=== PATIENT | female | born 1950 | race Caucasian/White ===

== ENCOUNTER → 2017-04-16 | Outpatient (CLI) | payer OTHER ==
[~2017-04-16] MED LIST: AMLO5TAB2 PO; ASPI-496 PO; ATOR80TA75 PO; CALC1CAP8 PO; CEPH-368 PO; CHOL500014 PO; CIME200T4 PO; CYPR4TAB PO; DIPH25CA61 PO; FERR325T63 PO; HYDR200T PO; MELO7.5T5 PO; METO25TA35 PO; METO50TA82 PO; MULT1TAB9 PO; OMEP-110 PO; ONDA4TAB7 PO; OXYC-229 PO; SERT50TA PO; SULF1TAB24 PO; ZOLP10TA PO; iron PO
== END | disposition home or self-care (01) ==
LOC: RAD 10:14
PROVIDERS: ATTEND Internal Medicine Hematology & Oncology
DX: R91.8 Other nonspecific abnormal finding of lung field (principal); C50.111 Malignant neoplasm of central portion of right female breast
CPT/HCPCS: 71020

== ENCOUNTER → 2017-04-23 | Outpatient (CLI) | payer OTHER ==
[~2017-04-23] MED LIST changes: +OMNIPAQUE 350 MG/ML, 100ML BOTTLE ONE
== END | disposition home or self-care (01) ==
LOC: CFH 10:24
PROVIDERS: ATTEND Internal Medicine Hematology & Oncology
DX: C50.111 Malignant neoplasm of central portion of right female breast (principal); C78.01 Secondary malignant neoplasm of right lung; I77.89 Other specified disorders of arteries and arterioles; R91.8 Other nonspecific abnormal finding of lung field; I70.0 Atherosclerosis of aorta; M41.84 Other forms of scoliosis, thoracic region; Z95.1 Presence of aortocoronary bypass graft; Z90.49 Acquired absence of other specified parts of digestive tract
CPT/HCPCS: 71275; Q9967

== ENCOUNTER 2018-06-04 06:55 | Day surgery (SDC) | payer OTHER ==
[~2018-06-04] VITALS: Ht 165.1 cm; Wt 75.0 kg
[~2018-06-04 06:55] MED LIST changes: +ASPI-515 PO; +ATOR-2 PO; -ATOR80TA75 PO; +BIOT1TAB3 PO; -CHOL500014 PO; +CHOL500045 PO; -CIME200T4 PO; +CIME200T6 PO; -CYPR4TAB PO; +CYPR4TAB36 PO; +DIPH1TAB6 PO; -HYDR200T PO; +HYDR200T72 PO; +LORA1TAB PO; -OMNIPAQUE 350 MG/ML, 100ML BOTTLE ONE; -OXYC-229 PO; +OXYC-307 PO
[2018-06-04 08:00] VITALS: BP 180/87
[2018-06-04] MEDS ORDERED: LIDOCAINE-MPF 2%, 2ML ONE (08:05)
[2018-06-04] MEDS ORDERED: NALOXONE 1 MG/ML, 2ML ONE (08:25)
[2018-06-04] MEDS ORDERED: MIDAZOLAM 1 MG/ML, 5ML ONE (08:25)
[2018-06-04] MEDS ORDERED: FENTANYL PF 100 MCG/2ML ONE (08:25)
[2018-06-04] MEDS ORDERED: FLUMAZENIL 0.1 MG/1 ML, 5ML ONE (08:25)
[2018-06-04] MEDS ORDERED: SODIUM CHLORIDE 0.9% 1,000 ML IV SCH (08:30)
== END 2018-06-04 17:00 | disposition home or self-care (01) ==
LOC: OUT 06:55 → OR 06:55 → EDSTATUS 08:30 → OR 17:00
PROVIDERS: ATTEND Radiology Radiation Oncology
DX: C78.01 Secondary malignant neoplasm of right lung (principal); I27.20 Pulmonary hypertension, unspecified; I51.7 Cardiomegaly; Z95.1 Presence of aortocoronary bypass graft; Z79.82 Long term (current) use of aspirin
CPT/HCPCS: 32553; 71045; 77014; 99156; A4648; J2250; J3010; J3490; 99157; J2310

== ENCOUNTER 2018-06-27 09:42 | Inpatient (IN) | payer OTHER ==
[~2018-06-27] VITALS: Ht 165.1 cm; Wt 80.5 kg
[~2018-06-27 09:42] MED LIST changes: -AMLO5TAB2 PO; +AMLO5TAB7 PO
[2018-06-27] MEDS ORDERED: SODIUM CHLORIDE 0.9% 1,000ML IVBOLUS ONE (10:00)
[2018-06-27] MEDS ORDERED: SODIUM CHLORIDE FLUSH 10ML SYR IVF ONE (10:00)
[2018-06-27 10:23] LABS: BASOPHILS % (AUTO) 0 % (0-1); EOSINOPHILS # (AUTO) 0.24 x10^3/uL (0-0.4); EOSINOPHILS % (AUTO) 6 % (1-7); LYMPHOCYTES # (AUTO) 0.44 x10^3/uL (1-3.4); LYMPHOCYTES % (AUTO) 11 % (22-44); MD NO; MEAN CORPUSCULAR HEMOGLOBIN 32.1 pg (27.0-34.8); MEAN CORPUSCULAR HGB CONC 33.8 g/dL (32.4-35.8); MEAN CORPUSCULAR VOLUME 94.8 fL (80-100); MEAN PLATELET VOLUME 8.4 fL (7.4-10.4); MONOCYTES # (AUTO) 0.41 x10^3/uL (0.2-0.8); MONOCYTES % (AUTO) 10 % (2-9); NEUTROPHILS # (AUTO) 3.04 x10^3/uL (1.8-6.8); NEUTROPHILS % (AUTO) 73 % (42-75); PLATELET COUNT 127 x10^3/uL (130-400); RED BLOOD COUNT 3.39 x10^6/uL (3.82-5.3); RED CELL DISTRIBUTION WIDTH 17.9 % (9.6-15.2)
[2018-06-27 10:33] LABS: ALANINE AMINOTRANSFERASE 32 U/L (12-78); ALBUMIN 2.4 g/dL (3.4-5.0); ANION GAP 10 mmol/L (5-15); CALCIUM 7.8 mg/dL (8.5-10.1); CHLORIDE 112 mmol/L (98-107); CREATININE 2.81 mg/dL (0.55-1.02)
[2018-06-27 10:35] LABS: ALKALINE PHOSPHATASE 226 U/L (45-117); BILIRUBIN,TOTAL 0.3 mg/dL (0.2-1.0); TOTAL PROTEIN 7.6 g/dL (6.4-8.2)
[2018-06-27 11:08] LABS: MICROSCOPIC AUTO
[2018-06-27 11:09] LABS: CULTURE INDICATED? YES
[2018-06-27] MEDS ORDERED: POLYETHYLENE GLYCOL 17 GM PACKET PO PRN (12:00)
[2018-06-27] MEDS ORDERED: hydrALAzine 20 MG/ML, 1ML IVPush PRN (12:00)
[2018-06-27] MEDS ORDERED: DOCUSATE 100 MG CAPSULE PO PRN (12:00)
[2018-06-27] MEDS ORDERED: ONDANSETRON ODT 4 MG PO PRN (12:00)
[2018-06-27] MEDS ORDERED: ONDANSETRON 2MG/ML, 2ML IVPush PRN (12:00)
[2018-06-27] MEDS ORDERED: morphine SULFATE 10 MG/ML, 1ML IVPush PRN (12:00)
[2018-06-27 12:07] LABS: HCT (SEDRATE) 32.1 % (34.6-47.8)
[2018-06-27 12:22] LABS: TROPONIN I 0.109 ng/mL (0.000-0.045)
[2018-06-27] MEDS ORDERED: SODIUM BICARB 8.4%,50ML SYR. 50 MEQ in D5%-0.45% NACL 1,000 ML IV SCH (12:47)
[2018-06-27 13:00] VITALS: BP 157/79
[2018-06-27] MEDS ORDERED: SODIUM BICARB 8.4%,50ML SYR. 50 MEQ in SODIUM CHLORIDE 0.45% 1,000 ML IV SCH (13:00)
[2018-06-27 13:22] VITALS: BP 157/79
[2018-06-27 19:07] VITALS: BP 173/78
[2018-06-27] MEDS: OMEPRAZOLE 20 MG CAPSULE.DR PO SCH (20:10)
[2018-06-27] MEDS: METOPROLOL TARTRATE 50 MG TABLET PO SCH (20:10)
[2018-06-27] MEDS: ZOLPIDEM 5MG TABLET PO PRN (20:10)
[2018-06-28 03:56] VITALS: BP 189/81
[2018-06-28 03:56] LABS: BASOPHILS # (AUTO) 0.01 x10^3/uL (0-0.1); BASOPHILS % (AUTO) 0 % (0-1); EOSINOPHILS # (AUTO) 0.17 x10^3/uL (0-0.4); EOSINOPHILS % (AUTO) 4 % (1-7); LYMPHOCYTES # (AUTO) 0.52 x10^3/uL (1-3.4); LYMPHOCYTES % (AUTO) 12 % (22-44); MD NO; MEAN CORPUSCULAR HEMOGLOBIN 31.5 pg (27.0-34.8); MEAN CORPUSCULAR HGB CONC 33.1 g/dL (32.4-35.8); MEAN CORPUSCULAR VOLUME 95.1 fL (80-100); MEAN PLATELET VOLUME 8.5 fL (7.4-10.4); MONOCYTES # (AUTO) 0.36 x10^3/uL (0.2-0.8); MONOCYTES % (AUTO) 9 % (2-9); NEUTROPHILS # (AUTO) 3.24 x10^3/uL (1.8-6.8); NEUTROPHILS % (AUTO) 75 % (42-75); PLATELET COUNT 109 x10^3/uL (130-400); RED BLOOD COUNT 3.11 x10^6/uL (3.82-5.3)
[2018-06-28 04:05] LABS: CALCIUM 7.3 mg/dL (8.5-10.1)
[2018-06-28 04:09] LABS: ALANINE AMINOTRANSFERASE 26 U/L (12-78); ALBUMIN 2.1 g/dL (3.4-5.0); ANION GAP 9 mmol/L (5-15); CALCIUM 7.1 mg/dL (8.5-10.1); CHLORIDE 113 mmol/L (98-107); CREATININE 2.56 mg/dL (0.55-1.02)
[2018-06-28 04:14] LABS: % IRON SATURATION 15 % (20-55); ALKALINE PHOSPHATASE 200 U/L (45-117); BILIRUBIN,TOTAL 0.3 mg/dL (0.2-1.0); IRON LEVEL 39 mcg/dL (50-170); TOTAL IRON BINDING CAPACITY 267 mcg/dL (250-450); TOTAL PROTEIN 6.8 g/dL (6.4-8.2)
[2018-06-28] MEDS: LABETALOL 5MG/ML, 20ML IVPush PRN (05:22)
[2018-06-28 06:50] VITALS: BP 187/77
[2018-06-28] MEDS: ATORVASTATIN 80 MG TABLET PO SCH (10:00)
[2018-06-28] MEDS: SERTRALINE 50MG TABLET PO SCH (10:00)
[2018-06-28] MEDS: METOPROLOL TARTRATE 50 MG TABLET PO SCH ×2 (10:00→20:13)
[2018-06-28] MEDS: ASPIRIN 81 MG TABLET EC PO SCH (10:01)
[2018-06-28 10:15] LABS: MICROSCOPIC AUTO
[2018-06-28 10:24] LABS: CREATININE,URINE RANDOM 86.5 mg/dL
[2018-06-28 10:34] LABS: CULTURE INDICATED? YES
[2018-06-28 11:46] LABS: TROPONIN I 0.138 ng/mL (0.000-0.045)
[2018-06-28 13:27] VITALS: BP 159/69
[2018-06-28] MEDS ORDERED: FUROSEMIDE 20 MG TABLET PO ONE (14:30)
[2018-06-28] MEDS: ACETAMINOPHEN 325 MG TABLET PO PRN (15:27)
[2018-06-28 19:51] VITALS: BP 179/76
[2018-06-28] MEDS: OMEPRAZOLE 20 MG CAPSULE.DR PO SCH (20:12)
[2018-06-28] MEDS: ZOLPIDEM 5MG TABLET PO PRN (20:12)
[2018-06-29 02:12] VITALS: BP 170/87
[2018-06-29 03:00] VITALS: BP 177/77
[2018-06-29] MEDS: LABETALOL 5MG/ML, 20ML IVPush PRN (03:06)
[2018-06-29 05:38] LABS: MEAN CORPUSCULAR HGB CONC 33.9 g/dL (32.4-35.8); MEAN CORPUSCULAR VOLUME 94.7 fL (80-100); MEAN PLATELET VOLUME 8.6 fL (7.4-10.4); PLATELET COUNT 100 x10^3/uL (130-400); RED BLOOD COUNT 3.12 x10^6/uL (3.82-5.3); RED CELL DISTRIBUTION WIDTH 17.1 % (9.6-15.2)
[2018-06-29 05:50] LABS: ANION GAP 9 mmol/L (5-15); CALCIUM 7.1 mg/dL (8.5-10.1); CHLORIDE 112 mmol/L (98-107); CREATININE 2.56 mg/dL (0.55-1.02)
[2018-06-29 06:27] LABS: BASOPHILS % (AUTO) 0 % (0-1); EOSINOPHILS % (AUTO) 5 % (1-7); LYMPHOCYTES # (AUTO) 0.37 x10^3/uL (1-3.4); LYMPHOCYTES % (AUTO) 9 % (22-44); MD SCAN; MONOCYTES # (AUTO) 0.36 x10^3/uL (0.2-0.8); MONOCYTES % (AUTO) 9 % (2-9); NEUTROPHILS # (AUTO) 3.21 x10^3/uL (1.8-6.8); NEUTROPHILS % (AUTO) 78 % (42-75)
[2018-06-29] MEDS ORDERED: FENTANYL PF 100 MCG/2ML ONE (07:13)
[2018-06-29] MEDS ORDERED: MIDAZOLAM 1 MG/ML, 2ML ONE (07:13)
[2018-06-29 07:34] VITALS: BP 176/82
[2018-06-29] MEDS: SERTRALINE 50MG TABLET PO SCH (07:37)
[2018-06-29] MEDS: ASPIRIN 81 MG TABLET EC PO SCH (07:37)
[2018-06-29] MEDS: METOPROLOL TARTRATE 50 MG TABLET PO SCH ×2 (07:37→21:03)
[2018-06-29] MEDS: ATORVASTATIN 80 MG TABLET PO SCH (07:37)
[2018-06-29 10:26] VITALS: BP 139/69
[2018-06-29] MEDS: ACETAMINOPHEN 325 MG TABLET PO PRN (13:05)
[2018-06-29 14:17] VITALS: BP 157/82
[2018-06-29] MEDS ORDERED: FUROSEMIDE 40 MG TABLET PO ONE (15:00)
[2018-06-29 20:04] VITALS: BP 165/82
[2018-06-29] MEDS: OMEPRAZOLE 20 MG CAPSULE.DR PO SCH (21:02)
[2018-06-29] MEDS: ZOLPIDEM 5MG TABLET PO PRN (21:02)
[2018-06-30 03:44] VITALS: BP 169/77
[2018-06-30 05:39] LABS: CHLORIDE 111 mmol/L (98-107)
[2018-06-30 05:44] LABS: ANION GAP 10 mmol/L (5-15); CREATININE 2.45 mg/dL (0.55-1.02)
[2018-06-30 07:35] VITALS: BP 179/88
[2018-06-30] MEDS: METOPROLOL TARTRATE 50 MG TABLET PO SCH ×2 (07:36→20:40)
[2018-06-30] MEDS: ACETAMINOPHEN 325 MG TABLET PO PRN (07:36)
[2018-06-30] MEDS: ATORVASTATIN 80 MG TABLET PO SCH (07:36)
[2018-06-30] MEDS: SERTRALINE 50MG TABLET PO SCH (07:36)
[2018-06-30] MEDS ORDERED: REGADENOSON 0.4 MG/5 ML SYRINGE ONE (08:29)
[2018-06-30 11:00] VITALS: BP 181/98
[2018-06-30] MEDS ORDERED: DIPHENHYDRAMINE 50 MG CAPSULE PO PRN (11:00)
[2018-06-30 12:11] VITALS: BP 158/77
[2018-06-30 13:30] VITALS: BP 179/75
[2018-06-30] MEDS: FUROSEMIDE 20 MG TABLET PO SCH (14:12)
[2018-06-30] MEDS: CALCITRIOL 0.25 MCG CAPSULE PO SCH (14:12)
[2018-06-30] MEDS: HYDROcodone/APAP 5/325 TABLET PO PRN ×2 (15:46→21:53)
[2018-06-30 19:28] VITALS: BP 163/66
[2018-06-30] MEDS: OMEPRAZOLE 20 MG CAPSULE.DR PO SCH (20:36)
[2018-06-30] MEDS: ZOLPIDEM 5MG TABLET PO PRN (20:40)
[2018-07-01] VITALS (7 sets, daily range): BP systolic 142–180; BP diastolic 67–80
[2018-07-01 06:20] LABS: ANION GAP 8 mmol/L (5-15); CALCIUM 7.1 mg/dL (8.5-10.1); CHLORIDE 111 mmol/L (98-107)
[2018-07-01 06:22] LABS: CREATININE 2.49 mg/dL (0.55-1.02)
[2018-07-01] MEDS: CALCITRIOL 0.25 MCG CAPSULE PO SCH (08:32)
[2018-07-01] MEDS: ATORVASTATIN 80 MG TABLET PO SCH (08:33)
[2018-07-01] MEDS: FERROUS SULFATE 325 MG TABLET PO SCH (08:33)
[2018-07-01] MEDS: FUROSEMIDE 20 MG TABLET PO SCH (08:33)
[2018-07-01] MEDS: METOPROLOL TARTRATE 50 MG TABLET PO SCH ×2 (08:34→20:05)
[2018-07-01] MEDS: SERTRALINE 50MG TABLET PO SCH (08:34)
[2018-07-01] MEDS: MINOXIDIL 2.5 MG TABLET PO SCH ×2 (09:31→20:04)
[2018-07-01] MEDS: ZOLPIDEM 5MG TABLET PO PRN (20:04)
[2018-07-01] MEDS: OMEPRAZOLE 20 MG CAPSULE.DR PO SCH (20:04)
[2018-07-01] MEDS: ACETAMINOPHEN 325 MG TABLET PO PRN (23:50)
[2018-07-02 01:38] VITALS: BP 120/67
[2018-07-02 06:10] LABS: ANION GAP 10 mmol/L (5-15); CALCIUM 7.2 mg/dL (8.5-10.1); CHLORIDE 112 mmol/L (98-107); CREATININE 2.66 mg/dL (0.55-1.02)
[2018-07-02 07:25] VITALS: BP 144/71
[2018-07-02] MEDS: CALCITRIOL 0.25 MCG CAPSULE PO SCH (08:09)
[2018-07-02] MEDS: SERTRALINE 50MG TABLET PO SCH (08:09)
[2018-07-02] MEDS: ATORVASTATIN 80 MG TABLET PO SCH (08:09)
[2018-07-02] MEDS: METOPROLOL TARTRATE 50 MG TABLET PO SCH (08:10)
[2018-07-02] MEDS: MINOXIDIL 2.5 MG TABLET PO SCH (08:10)
[2018-07-02] MEDS: FUROSEMIDE 20 MG TABLET PO SCH (08:10)
[2018-07-02] MEDS: FERROUS SULFATE 325 MG TABLET PO SCH (08:10)
[2018-07-02] MEDS ORDERED: FERR-51 PO (12:09)
[2018-07-02] MEDS ORDERED: METO50TA82 PO (12:09)
[2018-07-02] MEDS ORDERED: HYDR-3343 PO (12:09)
[2018-07-02] MEDS ORDERED: CALC0.25 PO (12:09)
[2018-07-02] MEDS ORDERED: MINO2.5T PO (12:09)
== END 2018-07-02 13:39 | disposition home or self-care (01) | DRG 682 ==
LOC: ED 10:27 → EDIP 11:00 → 4WST 12:44 → DCLOUNGE 07-02 13:05
PROVIDERS: ADMIT Internal Medicine; ATTEND Internal Medicine
PROC: 02HV33Z Insertion of Infusion Device into Superior Vena Cava, Percutaneous Approach (ICD-10-PCS; principal; 2018-06-27)
DX: N17.0 Acute kidney failure with tubular necrosis (principal); I50.33 Acute on chronic diastolic (congestive) heart failure; E87.2 Acidosis; I13.0 Hypertensive heart and chronic kidney disease with heart failure and stage 1 through stage 4 chronic kidney disease, or unspecified chronic kidney disease; K52.1 Toxic gastroenteritis and colitis; C78.01 Secondary malignant neoplasm of right lung; D69.6 Thrombocytopenia, unspecified; D63.1 Anemia in chronic kidney disease; N18.9 Chronic kidney disease, unspecified; I16.0 Hypertensive urgency; K21.9 Gastro-esophageal reflux disease without esophagitis; E78.5 Hyperlipidemia, unspecified; F32.9 Major depressive disorder, single episode, unspecified; D69.59 Other secondary thrombocytopenia; T45.1X5A Adverse effect of antineoplastic and immunosuppressive drugs, initial encounter; I25.10 Atherosclerotic heart disease of native coronary artery without angina pectoris; E83.51 Hypocalcemia; E78.00 Pure hypercholesterolemia, unspecified; Z96.642 Presence of left artificial hip joint; E86.0 Dehydration; R31.29 Other microscopic hematuria; Y92.89 Other specified places as the place of occurrence of the external cause; Z95.1 Presence of aortocoronary bypass graft; Z85.3 Personal history of malignant neoplasm of breast; Z90.13 Acquired absence of bilateral breasts and nipples; Z92.3 Personal history of irradiation
CPT/HCPCS: 36415; 71045; 76770; 78452; 80048; 80053; 81001; 82306; 82310; 82570; 82728; 83520; 83540; 83550; 83735; 83880; 83970; 84100; 84155; 84156; 84165; 84166; 84300; 84484; 85025; 85651; 86038; 86140; 86160; 86256; 87086; 87147; 93005; 93017; 93306; 99285; G0378; J2250; J2785; J3010; A9502; C9898; J7030

== ENCOUNTER 2018-07-08 06:09 | Day surgery (SDC) | payer OTHER ==
[~2018-07-08] VITALS: Ht 165.1 cm; Wt 80.5 kg
[~2018-07-08 06:09] MED LIST changes: +CALC0.25 PO; +FERR-51 PO; +HYDR-3343 PO; +MINO2.5T PO
[2018-07-08] MEDS ORDERED: SODIUM CHLORIDE 0.9% 1,000 ML IV SCH (07:03)
[2018-07-08 07:31] VITALS: BP 151/76
[2018-07-08 07:43] LABS: INTERNATIONAL NORMALIZED RATIO 1.05 (0.93-1.1); PROTHROMBIN TIME 10.8 Seconds (9.6-11.5)
[2018-07-08] MEDS ORDERED: NALOXONE 1 MG/ML, 2ML ONE (07:55)
[2018-07-08] MEDS ORDERED: FLUMAZENIL 0.1 MG/1 ML, 5ML ONE (07:55)
[2018-07-08] MEDS ORDERED: FENTANYL PF 100 MCG/2ML ONE ×2 (07:55)
[2018-07-08] MEDS ORDERED: MIDAZOLAM 1 MG/ML, 5ML ONE (07:55)
[2018-07-08] MEDS ORDERED: LIDOCAINE-MPF 2% ,5ML ONE (08:09)
== END 2018-07-08 11:55 | disposition home or self-care (01) ==
LOC: OUT 06:09
PROVIDERS: ATTEND Internal Medicine Nephrology
DX: I12.9 Hypertensive chronic kidney disease with stage 1 through stage 4 chronic kidney disease, or unspecified chronic kidney disease (principal); N18.9 Chronic kidney disease, unspecified; Z95.1 Presence of aortocoronary bypass graft; D64.9 Anemia, unspecified; I25.10 Atherosclerotic heart disease of native coronary artery without angina pectoris
CPT/HCPCS: 36415; 50200; 77012; 85610; 88300; 99156; J2250; J3010; J3490; J7030; 99157; J2310

== ENCOUNTER → 2018-09-17 | Outpatient (CLI) | payer OTHER ==
[~2018-09-17] MED LIST changes: +ALPR0.5T6 PO; +AMLO-150 PO; +AMLO2.5T3 PO; -AMLO5TAB7 PO; +CLON0.1T22 PO; +HYDR100T25 PO; +METO-99 PO; +MYCO500T3 PO; +PRED20TA PO; +PRED50TA PO; +SODI650T PO
[2018-09-17 11:16] LABS: INTERNATIONAL NORMALIZED RATIO 0.95 (0.93-1.1); PROTHROMBIN TIME 10.1 Seconds (9.6-11.5)
[2018-09-17 11:17] LABS: ALANINE AMINOTRANSFERASE 25 U/L (12-78); CALCIUM 8.6 mg/dL (8.5-10.1); CREATININE 1.43 mg/dL (0.55-1.02)
[2018-09-17 11:27] LABS: ALKALINE PHOSPHATASE 96 U/L (45-117); ANION GAP 7 mmol/L (5-15); BILIRUBIN,TOTAL 0.3 mg/dL (0.2-1.0); CHLORIDE 98 mmol/L (98-107); TOTAL PROTEIN 6.4 g/dL (6.4-8.2)
== END | disposition home or self-care (01) ==
LOC: STAR 09:55
PROVIDERS: ATTEND Internal Medicine Gastroenterology
DX: Z01.818 Encounter for other preprocedural examination (principal); R93.2 Abnormal findings on diagnostic imaging of liver and biliary tract
CPT/HCPCS: 36415; 80053; 85610; 85730; 93005

== ENCOUNTER 2018-09-24 05:40 | Day surgery (SDC) | payer OTHER ==
[~2018-09-24] VITALS: Ht 165.1 cm; Wt 71.1 kg
[~2018-09-24 05:40] MED LIST changes: +cloniDINE/PF 100 MCG/ML, 10 ML ONE
[2018-09-24 06:26] VITALS: BP 161/79
[2018-09-24] MEDS ORDERED: LACTATED RINGERS 1,000 ML IV SCH (06:29)
[2018-09-24] MEDS ORDERED: FENTANYL PF 100 MCG/2ML ONE (07:20)
[2018-09-24] MEDS ORDERED: EPHEDRINE 50 MG/ML, 1ML ONE (07:29)
[2018-09-24] MEDS ORDERED: LIDOCAINE 4%, 4 ML SYR/CANN TP ONE (07:29)
[2018-09-24] MEDS ORDERED: LABETALOL 5MG/ML, 20ML IV PRN (07:30)
[2018-09-24] MEDS ORDERED: ONDANSETRON 2MG/ML, 2ML IV PRN (07:30)
[2018-09-24] MEDS ORDERED: FENTANYL PF 100 MCG/2ML IV PRN (07:30)
[2018-09-24] MEDS ORDERED: ONDANSETRON ODT 8 MG PO PRN (07:30)
[2018-09-24] MEDS ORDERED: ACETAMINOPHEN 325 MG TABLET PO PRN (07:30)
[2018-09-24] MEDS ORDERED: PROCHLORPERAZINE 5 MG/ML, 2ML IV PRN (07:30)
[2018-09-24] MEDS ORDERED: DIAZEPAM 5 MG/ML, 2ML IVPush PRN (07:30)
[2018-09-24] MEDS ORDERED: hydrALAzine 20 MG/ML, 1ML IV PRN (07:30)
[2018-09-24] MEDS ORDERED: HYDROmorphone 2 MG/ML, 1ML IVPush PRN (07:30)
[2018-09-24] MEDS ORDERED: OXYcodone 5 MG/5 ML ORAL.SOL UDC PO PRN (07:30)
[2018-09-24] MEDS ORDERED: DEXAMETHASONE 4 MG/ML, 1ML ONE (07:38)
[2018-09-24] MEDS ORDERED: ROCURONIUM 10MG/ML,5ML ONE (07:38)
[2018-09-24] MEDS ORDERED: CEFAZOLIN 1,000 MG ONE (07:38)
[2018-09-24] MEDS ORDERED: PROPOFOL 10 MG/ML, 20ML ONE (07:38)
[2018-09-24] MEDS ORDERED: ONDANSETRON 2MG/ML, 2ML ONE (07:38)
[2018-09-24] MEDS ORDERED: SUCCINYLCHOLINE 20 MG/ML, 10ML ONE (07:38)
[2018-09-24] MEDS ORDERED: NEOSTIGMINE 1 MG/ML, 10ML ONE (07:38)
[2018-09-24] MEDS ORDERED: GLYCOPYRROLATE 0.2MG/1ML, 5ML ONE (07:38)
[2018-09-24] MEDS ORDERED: hydrALAzine 20 MG/ML, 1ML ONE (08:31)
== END 2018-09-24 09:45 | disposition home or self-care (01) ==
LOC: OUT 05:40
PROVIDERS: ATTEND Internal Medicine Gastroenterology
DX: K29.50 Unspecified chronic gastritis without bleeding (principal); K26.9 Duodenal ulcer, unspecified as acute or chronic, without hemorrhage or perforation; I25.10 Atherosclerotic heart disease of native coronary artery without angina pectoris; I12.0 Hypertensive chronic kidney disease with stage 5 chronic kidney disease or end stage renal disease; N18.6 End stage renal disease; Z95.1 Presence of aortocoronary bypass graft; Z85.3 Personal history of malignant neoplasm of breast; Z90.49 Acquired absence of other specified parts of digestive tract; Z88.1 Allergy status to other antibiotic agents
CPT/HCPCS: 43237; 43239; 88305; J0330; J0690; J0735; J1100; J2405; J2704; J2710; J3010; J3490

== ENCOUNTER → 2018-10-21 | Outpatient (CLI) | payer OTHER ==
[~2018-10-21] MED LIST changes: -cloniDINE/PF 100 MCG/ML, 10 ML ONE
== END | disposition home or self-care (01) ==
LOC: ROC 07:38
PROVIDERS: ATTEND Radiology Radiation Oncology
DX: C78.01 Secondary malignant neoplasm of right lung (principal)
CPT/HCPCS: 99213; G0463